=== PATIENT | female | born 1985 | race Caucasian/White ===

== ENCOUNTER → 2016-04-24 | Outpatient (CLI) | payer BC, OTHER ==
--- NOTE | 2016-04-25 13:00 | REP ---
NUCLEAR THYROID UPTAKE AND SCAN: Following the oral administration of 369 mCi iodine-123 of sodium iodine, thyroid uptake is measured. The 2-hour uptake is 4.1%, which is below normal range of 6-12%. 24-hour uptake is 7.2%, which is below normal range of 25-35%. Thyroid scan shows both lobes to be in the range of 5 cm in length. There is mildly heterogeneous uptake bilaterally. No focal hot or cold nodule is seen. Signed by Baldomero Snow MD 04/25/2016 03:31 P
== END ==
LOC: M RAD 09:43
PROVIDERS: ATTEND Physician Assistant Medical
DX: E05.00 Thyrotoxicosis with diffuse goiter without thyrotoxic crisis or storm (principal)